=== PATIENT | female | born 1955 | race Caucasian/White ===

== ENCOUNTER → 2018-11-28 14:24 | Outpatient (CLI) | payer OTHER, SELFPAY ==
--- NOTE | 2018-11-28 14:35 | CT_ITS ---
CT head/brain wo con HISTORY: ITS.REASON: INVOLUNTARY MOVEMENTS, MUSCLE JERKS DURING SLEEP, WEAKNESS ORDERING PHYSICIAN: Luís Medrano MD PATIENT AGE: 62 years COMPARISON: No prior today's available for comparison TECHNIQUE: Helical CT scanning performed through the head with axial, sagittal and coronal reconstructions performed on CT workstation. 76 CPT. . Brain and bone windows reviewed. All CT scans at the facility use one or more dose reduction, viz: automated exposure control, ma/kV adjustment per patient size (including targeted exams where dose is matched to indication, i.e. head), or iterative reconstruction technique. FINDINGS Abnormal findings at the left basal ganglia & about the left lateral ventricle. Abnormal vague areas of low signal about & inferior to the anterior horn of left lateral ventricle, as well as low signal along anterior aspect of head of caudate nucleus. Suggest that there may have been a prior infarct or ischemia possibly possible old or recent lacunar infarct here anterior and along caudate nucleus.. However there is also Abnormal increased signal seen surrounding these areas and throughout the anterior left basal ganglia. Slightly hyperdense appearance surrounds the left basal ganglia. At the inferior most aspect of the anterior left basal ganglia, would note one or possibly 2 slightly small particularly hyperdense foci. These seen along, inferior aspect of putamen & just superior to the course of left MCA.. I suspect these reflect small foci of recent hemorrhage.-Favor hypertensive bleeding ventricular stripe vessels more likely.. Less likely from minor bleeding from aneurysm with this pattern. Question if blood may begin to disseminate into the putamen laterally & at head of caudate nucleus nucleus yielding diffuse increased density more medial. In either case there is slight hyperdense appearance Throughout these regions, associated with this finding... Alternatively luxury perfusion could yield slight increased subtle increased density throughout these regions..... Recommend MR brain without contrast to evaluate for this as well as; along with MRA to exclude any underlying aneurysm. Question if hyperdense blood has begun to disseminated into these adjacent structures.-As there is There is Subtle diffuse increased signal throughout the putamen which continues inferiorly. More medially there is Subtle abnormal increased signal at the left caudate nucleus continues inferiorly to just above [place]. . Remainder the brain appears satisfactory. The right cerebral hemisphere is unremarkable. Ventricles appear normal. No blood within the ventricles. Posterior fossa is unremarkable. IMPRESSION. 1. Appears to been subtle hemorrhage at the region of the inferior left basal ganglia 2 hyperintense foci at inferior Left basal ganglia suspect for small recent hemorrhagic focus.- With this there is also diffuse subtle hyperdense appearance of the putamen, & region of head of caudate nucleus which either reflect disseminated blood from this region vs possibly reflection luxury perfusion about this region. 2. Also note Abnormal low-density areas, suggesting recent or prior small lacunar infarct,, seen along anterior margin head of caudate nucleus & along the inferior aspect anterior horn left lateral ventricle.-Suspect prior or possibly recent ischemia in these areas, with small lacunar infarct these areas.. 3.Recommend MRI brain with & without contrast to further evaluate these features, this MR brain study should include include blood sensitive sequences . MRA brain also recommended at that setting Report was called to primary caregiver Pearl Bansal
== END ==
PROVIDERS: PCP Family Medicine; Visit Provider Family Medicine
DX: R25.9 Unspecified abnormal involuntary movements (principal); R53.1 Weakness; R26.81 Unsteadiness on feet; G25.3 Myoclonus
CPT/HCPCS: 70450